=== PATIENT | male | born 1990 | race Caucasian/White ===

== ENCOUNTER 2017-09-10 11:57 | Emergency (ER) | payer OTHER ==
[2017-09-10 12:32] VITALS: O2SAT 95
[2017-09-10] MEDS ORDERED: Adacel Vial IM ONE ×2 (12:32→12:33)
--- NOTE | 2017-09-10 12:43 | ERPHSYRPT ---
- History of Present Illness Time Seen by Provider: 09/10/17 12:15 Source: patient Patient Subjective Stated Complaint: pt states he was at work and hit top of head on a metal box. denies any loss of consciousness. Triage Nursing Assessment: pt pink, warm, dry. 2 cm superficial laceration to top of scapl. no bleeding present. Physician History: CC: cut head Hx: 27 y/o patient [employer] cut the top of his bald head when he went in the freezer and raised up and struck something. Needs tetanus vaccine. No LOC. No neck pain. No N/T/W. No neck pain. No other complaints. Severity: mild Location: scalp (top) Allergies/Adverse Reactions: No Known Drug Allergies Allergy (Unverified 04/08/16 16:08) Home Medications: Hydrocodone/Acetaminophen [Hydrocodon-Acetaminophen 5-325] 1 each PO Q4HPRN PRN 04/08/16 [History] Hx Tetanus, Diphtheria Vaccination/Date Given: Yes (unknown) Hx Influenza Vaccination/Date Given: No Hx Pneumococcal Vaccination/Date Given: No Immunizations Up to Date: Yes - Review of Systems Constitutional: No Symptoms Eyes: No Vision Changes Abdominal/Gastrointestinal: No Nausea, No Vomiting Musculoskeletal: Injury (scalp), No Neck Pain - Past Medical History Pertinent Past Medical History: Yes Neurological History: No Pertinent History Cardiac History: No Pertinent History Respiratory History: Sleep Apnea Endocrine Medical History: No Pertinent History Musculoskeletal History: Degenerative Disk Disease Other Medical History: sleep apnea - Past Surgical History Past Surgical History: No Other Surgical History: Armpit Cyst Removal 2010 - Social History Smoking Status: Never smoker Exposure to second hand smoke: No Drug Use: none Patient Lives Alone: No - Nursing Vital Signs Nursing Vital Signs: Initial Vital Signs Temperature 98.5 F 09/10/17 12:25 Pulse Rate 75 09/10/17 12:25 Respiratory Rate 18 09/10/17 12:25 Blood Pressure 154/86 09/10/17 12:25 O2 Sat by Pulse Oximetry 95 09/10/17 12:25 Pain Scale Pain Intensity 5 - Physical Exam General Appearance: alert Eye Exam: PERRL/EOMI Ears, Nose, Throat Exam: moist mucous membranes Neck Exam: non-tender, supple Neurologic Exam: alert, oriented x 3, cooperative Skin Exam: warm, dry SpO2 Interpretation: normal SpO2: 95 Oxygen Delivery: Room Air Comments: 09/10/17 12:42 superior scalp has 2cm superficial laceration. Cleansed with hibiclens. Pressure held for bleeding control. Closed with dermabond. - Course Nursing assessment & vital signs reviewed: Yes Ordered Tests: Active Orders 24 hr Category Date Time Status Wound Care STAT Care 09/10/17 12:36 Active Medication Summary Discontinued Medications Generic Name Dose Route Start Last Admin Trade Name Freq PRN Reason Stop Dose Admin Diphtheria/Tetanus/Acell Pertussis 0.5 ml 09/10/17 12:32 09/10/17 12:34 Adacel Vial IM 09/10/17 12:33 0.5 ml .ONCE ONE Administration Diphtheria/Tetanus/Acell Pertussis Confirm 09/10/17 12:33 Adacel Vial Administered 09/10/17 12:34 Dose 0.5 ml IM .STK-MED ONE - Departure Time of Disposition: 12:43 Departure Disposition: Home Clinical Impression: Scalp laceration Qualifiers: Encounter type: initial encounter Qualified Code(s): S01.01XA - Laceration without foreign body of scalp, initial encounter Condition: Stable Critical Care Time: No Referrals: DONNA GAINES [Primary Care Provider] - Instructions: Laceration Repair With Dermabond Additional Instructions: Report any sign of infection. Tylenol if needed for discomfort. May return to work.
[2017-09-10 12:59] VITALS: BP 147/87; PULSE 73
== END 2017-09-10 13:00 | disposition home or self-care (01) ==
LOC: ED 11:57
PROC: 0HQ0XZZ Repair Scalp Skin, External Approach (ICD-10-PCS; principal; 2017-09-10)
DX: S01.01XA Laceration without foreign body of scalp, initial encounter (principal); W22.8XXA Striking against or struck by other objects, initial encounter; Y92.511 Restaurant or cafe as the place of occurrence of the external cause; Y99.0 Civilian activity done for income or pay
CPT/HCPCS: 12001; 90471; 90715; 99284